=== PATIENT | female | born 1985 | race Caucasian/White ===

== ENCOUNTER 2020-04-25 16:20 | Emergency (ER) | payer OTHER, SELFPAY ==
[2020-04-25 16:30] VITALS: BP 133/68; PULSE 71; RESP 16; TEMP 37.1; O2SAT 99
--- NOTE | 2020-04-25 16:34 | ED.EXTPRO ---
HPI - Extremity Problem General Chief complaint: Extremity Problem,Nontraumatic Stated complaint: bilateral hand pain Time Seen by Provider: 04/25/20 16:38 Source: patient and RN notes reviewed Mode of arrival: ambulatory Limitations: no limitations History of Present Illness HPI Narrative: 34-year-old female presents with concern for bilateral hand and wrist pain. 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 She denies any injury or trauma. Reports she has been using copper gloves to reduce pain, reports they worked briefly, but no longer work. She has not taken any medications for pain. Reports pain starts in the wrist and will radiate to the hands and up the arm occasionally MD Complaint: extremity pain Related Data Allergies Allergy/AdvReac Type Severity Reaction Status Date / Time codeine Allergy Severe Itching Verified 05/27/16 19:53 sulfamethoxazole Allergy Mild Verified 05/27/16 19:53 trimethoprim Allergy Mild Verified 05/27/16 19:53 fentanyl Allergy Unknown Verified 05/27/16 19:53 PROPOXYPHENE NAPSYLATE Allergy Mild Uncoded 05/27/16 19:53 HYDROMORPHONE HCL Allergy Unknown Uncoded 05/27/16 19:53 Review of Systems Review of Systems: Narrative: CONSTITUTIONAL: Denies malaise, chills, sweats, or fever. SKIN: Bruising, redness MUSCULOSKELETAL: Reports bilateral wrist and hand pain NEUROLOGIC: Reports bilateral intermittent wrist and hand numbness, weakness All systems reviewed & are unremarkable except as noted in HPI and below PMFSH Comments At time of signature, agree with nursing past medical, surgical, social and family history. There is no relevant family history pertinent to the presenting complaint Exam Narrative: Exam Narrative: GENERAL: Well-appearing, well-nourished, and in no acute distress. HEAD: Normocephalic EYES: PERRLA, conjunctivae clear NECK: Supple. CHEST: Speaks in full sentences. No respiratory distress. HEART: Regular rate and rhythm. Normal and equal peripheral pulses. EXTREMITIES: Right and left wrist and hand and digits of hand have normal sensation. 5/5 strength with digit flexion, extension. 4-5 sports broadcasting internship strength bilaterally. Range of motion normal. No clubbing, cyanosis, or edema noted. No tenderness. Skin intact. Normal digital cascade with flexion of fingers, median, ulnar and radial nerve intact. Normal sensation of each side of finger. Can perform 'okay' sign, 'cross over finger test of index and middle fingers' and 'thumbs up' sign. No scissoring. Normal thumb opposition. Good capillary refill and radial pulse. Distal capillary refill less than 3 seconds. SKIN: Warn, dry, intact, pink. No rash. Phalen and Tinel performed are negative NEURO: Alert and oriented x3. PSYCH: Normal mood and affect Course Course Emergency Course: Patient is aware of diagnosis, understands and agrees to treatment plan. Anticipatory guidance given. Patient agrees to follow-up as directed and is aware of reasons to seek care at the emergency department. Portions of this record may have been created with voice recognition software Vital Signs Vital signs: Vital Signs Temperature 98.8 F 04/25/20 16:30 Pulse Rate 71 04/25/20 16:30 Respiratory Rate 16 04/25/20 16:30 Blood Pressure 133/68 04/25/20 16:30 Pulse Oximetry 99 04/25/20 16:30 Temperature 98.8 F 04/25/20 16:30 Pulse Rate 71 04/25/20 16:30 Respiratory Rate 16 04/25/20 16:30 Blood Pressure 133/68 04/25/20 16:30 Pulse Oximetry 99 04/25/20 16:30 Reviewed. MDM - Extremity (Nontraumatic) MDM Narrative Medical decision making narrative: Exam findings and imaging show no acute concerns or changes; patient is non-toxic appearing and is in no distress. Patient is appropriate for outpatient treatment and follow-up. Critical Care Time Critical Care Time Critical Care Time: No Discharge Plan Discharge Clinical Impression: Chronic
== END 2020-04-25 16:56 | disposition home or self-care (01) ==
PROVIDERS: Emergency Provider Nurse Practitioner
DX: M25.532 Pain in left wrist (principal); M25.531 Pain in right wrist; G89.29 Other chronic pain
CPT/HCPCS: 99213; G0463

== ENCOUNTER 2021-12-31 04:43 | Emergency (ER) | payer OTHER, SELFPAY ==
--- NOTE | ~2021-12-31 | XR_ITS ---
EXAMINATION: XR foot RT min 3V DATE: 12/31/2021 06:01 INDICATION: Right foot pain TECHNIQUE: Dorsoplantar, lateral, and 2 oblique views of the right foot were obtained. COMPARISON: 06/29/2006 FINDINGS: There is no fracture, dislocation, or subluxation. The bones, soft tissues, and joint space s are normal. IMPRESSION: 1. No acute osseous abnormality. Reviewed, dictated and finalized at location A.
--- NOTE | ~2021-12-31 | XR_ITS ---
EXAMINATION: XR hip RT 2V w AP pelvis INDICATION: Right hip pain TECHNIQUE: AP view the pelvis and two views of the right hip are obtained. COMPARISON: None available FINDINGS: Bone alignment is normal. There is no fracture. The soft tissues are unremarkable. IMPRESSION: 1. No acute osseous abnormality. Reviewed, dictated and finalized at location A.
--- NOTE | ~2021-12-31 | XR_ITS ---
EXAMINATION: XR ankle RT min 3V INDICATION: Right ankle pain TECHNIQUE: Four views of the right ankle are obtained. COMPARISON: None available FINDINGS: There is no fracture, dislocation, or subluxation. The bones, soft tissues, and joint space s are normal. IMPRESSION: 1. No acute osseous abnormality. Reviewed, dictated and finalized at location A.
[2021-12-31 04:36] VITALS: BP 114/50; PULSE 90; RESP 17; TEMP 36.5; O2SAT 99
--- NOTE | 2021-12-31 05:37 | PC.NURSE ---
Patient stated she has had a tubal and that there is no chance of , states I will sign the form. Radiology notified.
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
--- NOTE | 2021-12-31 05:43 | PC.NURSE ---
Patient taken to xray.
[2021-12-31 06:40] VITALS: BP 100/74; PULSE 91; RESP 17; O2SAT 98
== END 2021-12-31 06:43 | disposition home or self-care (01) ==
PROVIDERS: Emergency Provider Emergency Medicine
DX: S93.401A Sprain of unspecified ligament of right ankle, initial encounter (principal); S96.911A Strain of unspecified muscle and tendon at ankle and foot level, right foot, initial encounter; S99.921A Unspecified injury of right foot, initial encounter; V03.10XA Pedestrian on foot injured in collision with car, pick-up truck or van in traffic accident, initial encounter
CPT/HCPCS: 73502; 73610; 73630; 99284

== ENCOUNTER 2023-05-30 13:23 | Emergency (ER) | payer OTHER, SELFPAY ==
[2023-05-30 13:41] VITALS: BP 100/52; PULSE 90; RESP 18; TEMP 36.6; O2SAT 98
--- NOTE | 2023-05-30 13:49 | ED.DENTAL ---
HPI - Dental/Oral General Chief complaint: Dental/Oral Stated complaint: Dental Pain History of Present Illness HPI Narrative: pt is a 37 y/o female, presents to with right lower wisdom tooth pain that has waxed and waned for several months however two days ago, her tooth cracked and she now has swelling to the gingiva and pain with opening/closing her jaw. She denies fevers or chills and she has no sublingual swelling or problems swallowing. She is taking APAP and using topical orajel without relief. She reports she has a dentist but requires an oral surgeon and the only one that accepts her insurance is in [place]. She denies chance of or any other complaints today Related Data Home Medications Medication Instructions Recorded Confirmed escitalopram oxalate 10 mg tablet mg 05/30/23 naltrexone 50 mg tablet mg 05/30/23 trazodone 50 mg tablet mg 05/30/23 Allergies Allergy/AdvReac Type Severity Reaction Status Date / Time codeine Allergy Severe Itching Verified 05/30/23 13:35 sulfamethoxazole Allergy Mild Other Verified 05/30/23 13:35 trimethoprim Allergy Mild Other Verified 05/30/23 13:35 fentanyl Allergy Unknown Other Verified 05/30/23 13:35 PROPOXYPHENE NAPSYLATE Allergy Mild Other Uncoded 05/30/23 13:35 HYDROMORPHONE HCL Allergy Unknown Other Uncoded 05/30/23 13:35 Review of Systems ENT: Reports system reviewed and no additional complaints, except as documented and Reports as per HPI Exam Const: General: healthy appearing, no acute distress and alert Nutritional Appearance: well nourished Orientation/consciousness: patient oriented x3 Limitations: no limitations HENMT: Head: normal to inspection Ears: external ears normal and TM's normal bilaterally Face/Nose/Sinus: Normal external nose present Face and sinus: normal facial exam (no gross facial swelling or asymmetry) and sinuses nontender Teeth and gingiva: abnormal tooth and associated gingiva (diffuse dental decay of the upper and lower teeth. the #32 tooth is cracked) Other: mild gingival erythema noted surrounding the right #32 tooth. There is no sublingual swelling or submental node palpable. No palpable lymphadenopathy appreciated Course Course Emergency Course: oral abx, dental FU stressed Level of Care: [facility] Care Visit ([id number]) Vital Signs Vital signs: Vital Signs Temperature 36.6 C 05/30/23 13:41 Pulse Rate 90 05/30/23 13:41 Respiratory Rate 18 05/30/23 13:41 Blood Pressure 100/52 L 05/30/23 13:41 Pulse Oximetry 98 05/30/23 13:41 Oxygen Delivery Room Air 05/30/23 13:41 Temperature 36.6 C 05/30/23 13:41 Pulse Rate 90 05/30/23 13:41 Respiratory Rate 18 05/30/23 13:41 Blood Pressure 100/52 L 05/30/23 13:41 Pulse Oximetry 98 05/30/23 13:41 Oxygen Delivery Room Air 05/30/23 13:41 MDM - Dental/Oral MDM Narrative Medical decision making narrative: oral abx, dental FU, encouraged patient call to [facility] dental school in [place], as they may be able to accommodate her surgical needs. pt is agreeable with plan. Differential Diagnosis Differential diagnosis: Likely dental caries, toothache, dental abscess and fracture of tooth Discharge Plan Discharge Clinical Impression: Dental caries, Toothache Patient Disposition: Home, Self-Care Condition: Stable Instructions: Antibiotic Form, Toothache (ED) Additional Instructions: START AND COMPLETE ANTIBIOTICS DIRECTED. ADD AN OVER THE COUTNER PROBIOTIC TO REDUCE GI SIDE EFFECTS. SEE YOUR DENTIST OR CONTACT [facility] FOR FOLLOW UP VISIT. PROCEED TO THE ER IF YOU DEVELOP FEVERS OR SWELLING BENEATH YOUR TONGUE. Prescriptions: New clindamycin HCl 300 mg capsule 300 mg PO Q6H 10 Days Qty: 40 0RF No Action trazodone 50 mg tablet naltrexone 50 mg Tablet escitalopram oxalate 10 mg tablet Follow-up/Referrals: PHYSICIAN NOT ON STAFF,NONSTAFF [Primary Care Provider] - Stand Alone
== END 2023-05-30 13:58 | disposition home or self-care (01) ==
PROVIDERS: Emergency Provider Nurse Practitioner Family
DX: K02.9 Dental caries, unspecified (principal); Z79.899 Other long term (current) drug therapy
CPT/HCPCS: 99213; G0463

== ENCOUNTER 2023-12-21 13:08 | Emergency (ER) | payer OTHER, SELFPAY ==
--- NOTE | ~2023-12-21 | CT_ITS ---
EXAMINATION: CT soft tissue neck w con DATE: 12/21/2023 14:17 INDICATION: Right-sided facial swelling, rule out abscess TECHNIQUE: Computed tomography (CT) of the neck was performed with 75 mL Omnipaque-350 intravenous co ntrast. Automated exposure control and iterative reconstruction technique were employed. The dose-viktor gth product was 214.19 mGy-cm. COMPARISON: None FINDINGS: The thyroid gland is unremarkable. Enlargement and hyperemia of the right submandibular gland. The left submandibular gland and bilateral parotid glands are normal. Moderate enlargement of the right p alatine tonsil. Bilateral upper anterior cervical chain lymph node enlargement, particularly about th e right submandibular gland. The superior mediastinum is unremarkable. The airway is unremarkable. Extensive edema in the right parapharyngeal space and parapharyngeal mucosal space. Grossly norm al-appearing neck arteries. The orbits are unremarkable. Visualized sinuses and mastoid air cells a re well aerated. Biapical pleural scarring. Early emphysematous change. There is no significant ce rvical spondylosis. Extensive tooth and periapical lucencies. IMPRESSION: Moderate right pontine tonsil and marked right submandibular gland enlargement, with surrounding kerry a and lymphadenopathy. No abscess detected. Extensive periodontal disease, consider dental referral. Biapical pleural scarring and emphysematous change, greater than expected for age. Reviewed, dictated and finalized at location K. IMPRESSION: Moderate right pontine tonsil and marked right submandibular gland enlargement, with surrounding edema and lymphadenopathy. No abscess detected. Extensive periodontal disease, consider dental referral. Biapical pleural scarring and emphysematous change, greater than expected for a ge.
[2023-12-21 13:13] VITALS: BP 125/72; PULSE 80; RESP 18; TEMP 36.3; O2SAT 100
--- NOTE | 2023-12-21 13:44 | ED.SKABFB ---
HPI - Skin/Abscess/Foreign Bdy General Chief complaint: Skin/Abscess/Foreign Body Stated complaint: R sided jaw pain, abscess Time Seen by Provider: 12/21/23 13:11 Source: patient Mode of arrival: ambulatory Limitations: no limitations History of Present Illness HPI narrative: Patient is a 38-year-old female who presents with concern for abscess to right lower jaw. Patient reports she was eating last night and thinks she cracked her her right lower wisdom tooth, tooth number 32. She developed pain in her right lower mouth afterwards. States she woke up this morning with significant swelling to her right lower jaw. Reports pain with eating/chewing, swallowing. Denies difficulty breathing. Denies nausea, vomiting. She is able to keep down fluids. Denies fevers. Patient does not currently have a dentist. Took ibuprofen last night, has not had anything for pain today. Related Data Home Medications Medication Instructions Recorded Confirmed escitalopram oxalate 10 mg tablet mg 05/30/23 naltrexone 50 mg tablet mg 05/30/23 trazodone 50 mg tablet mg 05/30/23 Allergies Allergy/AdvReac Type Severity Reaction Status Date / Time codeine Allergy Severe Itching Verified 12/21/23 13:17 sulfamethoxazole Allergy Mild Other Verified 12/21/23 13:17 trimethoprim Allergy Mild Other Verified 12/21/23 13:17 fentanyl Allergy Unknown Other Verified 12/21/23 13:17 PROPOXYPHENE NAPSYLATE Allergy Mild Other Uncoded 12/21/23 13:17 HYDROMORPHONE HCL Allergy Unknown Other Uncoded 12/21/23 13:17 Review of Systems Review of Systems: CONSTITUTIONAL: Denies fever, chills, or sweats. ENT: See HPI. CARDIOVASCULAR: Denies chest pain. RESPIRATORY: Denies dyspnea. GASTROINTESTINAL: Denies abdominal pain, nausea, vomiting, or diarrhea. All systems reviewed & are unremarkable except as noted in HPI and below Exam Narrative: GENERAL: Appears older than stated age, thin, in mild acute distress d/t pain. HEAD: Normocephalic, atraumatic. ENT: Diffuse dental decay, numerous dental caries. Fractured right lower wisdom tooth, tooth number 32 with significant gum inflammation surrounding tooth. Tenderness to palpation diffusely throughout right lower posterior gumline. No evidence of focal abscess or fluctuance. No obvious drainage. No other mucosal lesions noted. Uvula is midline and not edematous. R tonsil appears mildly enlarged, no exudate. No protrusion of tonsillar bed. No obvious drainage from ducts. Swelling noted to right lower mandible/outer jaw line. Focal tenderness to this region. Again no obvious fluctuance. RESPIRATORY: Airway patent, respirations nonlabored. Clear to auscultation bilaterally, no rales, rhonchi, wheezing. CARDIOVASCULAR: Regular rate and rhythm without murmurs, rubs, or gallops. MUSCULOSKELETAL: Moves all extremities. No gross deformities. SKIN: Warm, dry, normal color. NEURO: A&O X3. Speech clear. Cranial nerves II-XII grossly intact. Steady gait. No ataxic movements. PSYCHIATRIC: Appropriate mood and affect. Normal interaction. Course Vital Signs Vital signs: Vital Signs Temperature 97.4 F L 12/21/23 13:13 Pulse Rate 80 12/21/23 13:13 Respiratory Rate 18 12/21/23 13:13 Blood Pressure 125/72 12/21/23 13:13 Pulse Oximetry 100 12/21/23 13:13 Oxygen Delivery Room Air 12/21/23 13:13 Temperature 97.4 F L 12/21/23 13:13 Pulse Rate 80 12/21/23 13:13 Respiratory Rate 18 12/21/23 13:13 Blood Pressure 125/72 12/21/23 13:13 Pulse Oximetry 100 12/21/23 13:13 Oxygen Delivery Room Air 12/21/23 13:13 MDM - Skin/Abscess/Foreign Bdy MDM Narrative Medical decision making narrative: Patient presented to ED with right lower dental pain, jaw swelling. Vital signs are stable upon arrival. Patient mildly uncomfortable appearing. Has numerous med allergies, did not want narcotic pain medication. Given Toradol and Tylenol in the ED. Will obtain lab and imaging to further eval
[2023-12-21 13:49] LABS: Basophils Percent Auto 0.2 % (0.2-1.2); Eosinophils Percent Auto 0.1 % (0-4.4); Hematocrit 40.6 % (37.0-47.0); Hemoglobin 13.7 g/dL (12.0-15.0); Immature Granulocyte Absolute 0.09 K/mm3 (0.00-0.031); Immature Granulocyte Percent A 0.5 % (0-0.5); Lymphocytes Absolute Auto 1.75 K/mm3 (0.9-3.2); Lymphocytes Percent Auto 9.5 % (18.3-44.2); Mean Corpuscular HGB Conc 33.7 g/dl (32-36); Mean Corpuscular Hemoglobin 32.2 pg (26-34); Mean Corpuscular Volume 95.3 fl (80-100); Mean Platelet Volume 10.2 fl (7.4-10.4); Monocytes Absolute Auto 1.4 K/mm3 (0.1-0.6); Monocytes Percent Auto 7.5 % (2.6-8.5); Neutrophils Absolute Auto 15.1 K/mm3 (1.3-6.7); Neutrophils Percent Auto 82.2 % (45.5-73.1); Platelet Count Result 354 k/mm3 (150-375); Red Blood Count 4.26 M/mm3 (4.2-5.4); Red Cell Distribution Width 12.9 % (11.5-14.5); White Blood Count 18.4 K/mm3 (4.5-10.0)
[2023-12-21] MEDS: KETOROLAC 30 MG/ML VIAL (*BKC) IV PUSH (13:50)
[2023-12-21] MEDS: ACETAMINOPHEN 500 MG TABLET 1000 MG PO (13:50)
[2023-12-21] MEDS: SODIUM CHLORIDE 0.9% IV 1,000 ML 999 ML IV CONT (13:50)
[2023-12-21 13:59] LABS: Alanine Aminotransferase 14 U/L (6-35); Albumin Level 4.9 g/dL (3.5-5.1); Alkaline Phosphatase 60 U/L (38-126); Anion Gap 8 mmol/L (4-12); Aspartate Amino Transferase 22 U/L (14-36); Blood Urea Nitrogen 10 mg/dL (7-17); Calcium 9.5 mg/dL (8.4-10.2); Carbon Dioxide 23 mmol/L (22-30); Chloride 107 mmol/L (98-107); Estimated CRCL calculation 72 ml/min; Estimated Glomerular Filt Rate > 60; Glucose 126 mg/dL (65-110); Potassium 3.7 mmol/L (3.4-5.0); Sodium 138 mmol/L (137-145)
[2023-12-21] MEDS: AMPICILLIN SULB 3 GM/NS 100 ML 3 GM/100 ML VIAL IVPB (15:12)
== END 2023-12-21 15:51 | disposition home or self-care (01) ==
PROVIDERS: Emergency Provider Physician Assistant
DX: K03.81 Cracked tooth (principal); R59.9 Enlarged lymph nodes, unspecified; K05.6 Periodontal disease, unspecified
CPT/HCPCS: 36415; 70491; 80053; 81025; 85025; 96361; 96365; 96375; 99284; A9270; J0295; J1885; J7030; Q9967

== ENCOUNTER 2024-07-21 13:49 | Emergency (ER) | payer OTHER, SELFPAY ==
[2024-07-21 13:56] VITALS: BP 132/69; PULSE 82; RESP 16; TEMP 37.4; O2SAT 99
--- NOTE | 2024-07-21 13:58 | ED_ITS ---
HPI - Fever General Chief Complaint: Fever Stated Complaint: Chills/Fever Time Seen by Provider: 07/21/24 14:00 Source: patient Mode of arrival: ambulatory Limitations: no limitations History of Present Illness HPI Narrative: Kan is a 38-year-old female patient presenting to the clinic today with complaints of body aches, chills, sweats, fatigue, and tactile fever x2 days. She reports she has not checked her actual temperature. Denies any recent weight loss but states she has decrease in appetite. Denies sore throat, increase nasal congestion that what normal for her, or cough. She is a current smoker. Denies any chest pain, shortness breath, abdominal pain, or any urinary symptoms. Denies chance of as she has had tubal ligation/partial hyst Related Data Home Medications Medication Instructions Recorded Confirmed No Home Medications 07/21/24 07/21/24 Allergies Allergy/AdvReac Type Severity Reaction Status Date / Time codeine Allergy Severe Itching Verified 07/21/24 13:53 sulfamethoxazole Allergy Mild Other Verified 07/21/24 13:53 trimethoprim Allergy Mild Other Verified 07/21/24 13:53 fentanyl Allergy Unknown Other Verified 07/21/24 13:53 PROPOXYPHENE NAPSYLATE Allergy Mild Other Uncoded 07/21/24 13:53 HYDROMORPHONE HCL Allergy Unknown Other Uncoded 07/21/24 13:53 Review of Systems Review of Systems: Pertinent positives per HPI. Patient denies any rash, headache, visual changes, dizziness, cough, shortness of breath, chest pain, palpitations, nausea, vomiting, diarrhea, constipation, abdominal pain, or any urinary issues. PMFSH Comments At the time of my signature, I reviewed and agree with the nursing past medical, surgical, social, and family history. There is no relevant family history pertinent to the patient complaint. Exam Narrative: General: Well-developed, well nourished, in no apparent distress Head: Normocephalic, atraumatic Eyes: Pupils equally round and reactive to light bilaterally, EOM intact, sclera and conjunctive clear, no discharge, lids normal Ears: TMs intact and clear, ear canals clear, no drainage, grossly hearing normal. Nose: Nares patent, clear discharge, no inflammation, no sinus tenderness. Mouth: Oral pharynx without lesions or masses, good dentition, MMM. Neck: Supple, trachea midline, no enlargement of anterior or posterior cervical nodes, no thyroid masses or goiter palpable. Cardio: Regular rate and rhythm, s1 and s2 normal, no murmur appreciated. Resp: Clear to auscultation bilaterally, no rhonchi, rales, wheezing or rubs Course Course Emergency Course: Portions of this record may have been created with voice recognition software. Level of Care: Express Care Visit Vital Signs Vital signs: Vital Signs Temperature 37.4 C 07/21/24 13:56 Pulse Rate 82 07/21/24 13:56 Respiratory Rate 16 07/21/24 13:56 Blood Pressure 132/69 07/21/24 13:56 Pulse Oximetry 99 07/21/24 13:56 Oxygen Delivery Room Air 07/21/24 13:56 Temperature 37.4 C 07/21/24 13:56 Pulse Rate 82 07/21/24 13:56 Respiratory Rate 16 07/21/24 13:56 Blood Pressure 132/69 07/21/24 13:56 Pulse Oximetry 99 07/21/24 13:56 Oxygen Delivery Room Air 07/21/24 13:56 Vital signs reviewed MDM - Fever MDM Narrative Medical decision making narrative: At the time of visit patient is resting comfortably on the exam table. Patient appears to be nontoxic. Plan: Lung sounds are clear in the clinic today. COVID and influenza testing was negative. Patient denies any shortness of breath or chest pain. She denies any urinary symptoms or abdominal pain. No sign of bacterial infection in the clinic today. I suspect patient has viral syndrome. Supportive measures were discussed with the patient and they voiced understanding discharge instructions and agrees to treatment plan. Return precautions reviewed Differential Diagnosis Differential diagnosis: Likely cellulitis, fever of unknown origin, gastroenteritis, community acquired pneumonia, pyelonephritis, viral infection, sepsis and influenza Discharge Plan Discharge Clinical Impression: Acute viral syndrome Patient Disposition: Home, Self-Care Condition: Stable Instructions: Antibiotic Form, Viral Syndrome (ED) Additional Instructions: COVID and influenza testing was negative today Lung sounds are clear in the clinic today No sign of bacterial infection Increase fluids and stay well hydrated Tylenol/motrin for pain/fever Go to the ED if you develop a worsening in your condition- high fever not controlled by Tylenol or Motrin, dehydration, weakness, lethargy, shortness of breath, chest pain or abdomen pain. Follow up with your PCP in 3-5 days if symptoms persist. Prescriptions: No Action No Home Medications Follow-up/Referrals: PHYSICIAN,DIGITAL ASSET SPECIALIST [Primary Care Provider] - Stand Alone Forms: Work/School Release IP Time of Disposition: 14:15 Quality NIHSS Nursing Documentation ED NIHSS nursing documentation: reviewed/agree
[2024-07-21 14:19] LABS: EDCOVIDSCREEN Negative (Negative); EDINFLUASCREEN Negative (Negative); EDINFLUBSCREEN Negative (Negative)
== END 2024-07-21 14:22 | disposition home or self-care (01) ==
PROVIDERS: Emergency Provider Nurse Practitioner Family
DX: B34.9 Viral infection, unspecified (principal); Z20.822 Contact with and (suspected) exposure to COVID-19; F17.200 Nicotine dependence, unspecified, uncomplicated
CPT/HCPCS: 87426; 87804; 99212; G0463

== ENCOUNTER 2025-04-02 16:51 | Emergency (ER) | payer SELFPAY ==
[2025-04-02 16:58] VITALS: BP 103/51; PULSE 77; RESP 16; TEMP 37.1; O2SAT 98
--- NOTE | 2025-04-02 16:59 | ED.GENADULT ---
HPI - General Adult General Chief complaint: Abdominal Pain Stated complaint: right ear pain/abdomen pain/vomiting Time Seen by Provider: 04/02/25 17:00 Source: patient, RN notes reviewed and old records reviewed Mode of arrival: ambulatory Limitations: no limitations History of Present Illness HPI narrative: 39-year-old presents to the [facility] with complaints of 3 day of worsening abdominal pain vomiting. Had a normal bowel movement this morning. Denies any urinary symptoms. Denies frequency urgency or burning. Patient also noticed just prior to arrival that her right ear was bothering her. Onset (ago): day(s) (3) Treatments prior to arrival: none Related Data Home Medications ?Medication ?Instructions ?Recorded ?Confirmed ?Last Taken ?Type No Home Medications 07/21/24 04/02/25 Unknown History Allergies Allergy/AdvReac Type Severity Reaction Status Date / Time codeine Allergy Severe Itching Verified 04/02/25 16:52 sulfamethoxazole Allergy Mild Other Verified 04/02/25 16:52 trimethoprim Allergy Mild Other Verified 04/02/25 16:52 fentanyl Allergy Unknown Other Verified 04/02/25 16:52 PROPOXYPHENE NAPSYLATE Allergy Mild Other Uncoded 04/02/25 16:52 HYDROMORPHONE HCL Allergy Unknown Other Uncoded 04/02/25 16:52 Review of Systems Review of Systems: All systems reviewed & are unremarkable except as noted in HPI and below Constitutional: Constitutional: Reports poor appetite ENT: Reports as per HPI and Reports otalgia Cardiovascular: Cardiovascular: Reports no additional cardiovascular complaints, Denies chest pain and Denies dyspnea Respiratory: Respiratory: Reports no additional respiratory complaints, Denies chest congestion, Denies cough and Denies dyspnea Gastrointestinal: Gastrointestinal: Reports as per HPI, Reports abdominal pain and Reports nausea Genitourinary: Genitourinary: Reports no additional female genitourinary complaints Musculoskeletal: Musculoskeletal: Reports no additional musculoskeletal complaints Integumentary/Breasts: Skin/Breast: Reports system reviewed and no additional complaints, except as docu PMFSH Comments At the time of my signature, I reviewed and agree with the nursing past medical, surgical, social, and family history. There is no relevant family history pertinent to the patient complaint. Exam Const: General: cooperative, no acute distress, well developed, alert, tired appearing, uncomfortable and well nourished Nutritional Appearance: well nourished Orientation/consciousness: patient oriented x3 Limitations: no limitations HENMT: Head: normal to inspection Ears: hearing grossly normal bilaterally, external ears normal, TM's normal bilaterally, EAC's normal, mastoids normal and no periauricular adenopathy Face/Nose/Sinus: Normal external nose present Face and sinus: normal facial exam Mouth: Yes Normal oral and palatal mucosa present, Yes lip normal, Yes tongue normal and Yes moist mucous membranes Teeth and gingiva: poor dentition (Very decayed teeth) Eyes: General: appearance normal, both eyes and all related structures Alignment and Position: alignment normal Neck: Neck: normal visual inspection, full ROM, no lymphadenopathy and no meningeal signs Chest: Chest palpation & inspection: normal inspection of the chest Resp: Effort & Inspection: normal respiratory effort and able to speak in complete sentences Auscultation: clear to auscultation bilaterally, no crackles, no rales, no rhonchi and no wheezes Cardio: Rate: regular rate GI: Inspection: distended GI Palp: Yes abdominal tenderness, Yes Firmness to palpation present (GI) and Yes Guarding due to palpation present (GI) Auscultation: Hyperactive bowel sounds present : General: Yes no CVA tenderness Back/Spine/Pelvis: Back: no CVA tenderness Skin: General skin exam: normal color and no rashes or lesions noted Neuro: General: patient oriented x3, gait normal, moves all extremities and no meningeal signs Cognition (Neuro): normal cognition Speech: normal speech Gait exam (Neuro): Normal gait present Extrem: General: normal to inspection, full ROM, capillary refill normal and normal gait Psych: Appearance: grossly normal and well kempt Mental Status: mental status grossly normal Speech and movement: Normal speech and movement present and Clear speech present Affect: normal affect Attitude: cooperative Course Course Level of Care: Express Care Visit Vital Signs Vital signs: Vital Signs Temperature 98.7 F 04/02/25 16:58 Pulse Rate 77 04/02/25 16:58 Respiratory Rate 16 04/02/25 16:58 Blood Pressure 103/51 L 04/02/25 16:58 Pulse Oximetry 98 04/02/25 16:58 Oxygen Delivery Room Air 04/02/25 16:58 Temperature 98.7 F 04/02/25 16:58 Pulse Rate 77 04/02/25 16:58 Respiratory Rate 16 04/02/25 16:58 Blood Pressure 103/51 L 04/02/25 16:58 Pulse Oximetry 98 04/02/25 16:58 Oxygen Delivery Room Air 04/02/25 16:58 Reviewed Transfer Transfered to: [facility] Transportation: Other (POV, declined EMS) Transfer rationale: Patient with significant abdominal tenderness increasing over the last 3 days with associated vomiting. Sending for higher level of care Accepting physician: Spoke with Loren ABDUL, Dr. Davalos Medical Decision Making MDM Narrative Medical decision making narrative: Patient sitting in exam room. Patient is nontoxic but appears uncomfortable, vitals are stable. Patient presents with right ear pain and abdominal pain. No acute findings noted on the ear, tenderness to the lower abdominal area with palpation, mildly distended. Denies any other symptoms except for nausea and vomiting. Sending patient for higher level care to rule out acute abdomen Transfer instructions reviewed with patient go directly to the ER. Do not eat or drink until cleared by ER provider. EMS offered, patient declined will drive herself. All questions have been answered, and the patient deny any further questions with discharge and discharge plan. Some parts of this dictation were generated by voice recognition software and may contain typographical and/or grammatical inaccuracies. Differential Diagnosis Differential Diagnosis: Acute abdomen, bowel blockage, UTI, pyelonephritis, kidney stone, bowel obstruction, gallbladder, diverticulitis, constipation Medical Records Medical records reviewed: Yes I reviewed the external patient's medical records. Vital Signs Vital Signs: Vital Signs Temperature 98.7 F 04/02/25 16:58 Pulse Rate 77 04/02/25 16:58 Respiratory Rate 16 04/02/25 16:58 Blood Pressure 103/51 L 04/02/25 16:58 Pulse Oximetry 98 04/02/25 16:58 Oxygen Delivery Room Air 04/02/25 16:58 Temperature 98.7 F 04/02/25 16:58 Pulse Rate 77 04/02/25 16:58 Respiratory Rate 16 04/02/25 16:58 Blood Pressure 103/51 L 04/02/25 16:58 Pulse Oximetry 98 04/02/25 16:58 Oxygen Delivery Room Air 04/02/25 16:58 Reviewed Lab Data Lab results reviewed: Yes I reviewed the patient's lab results. Labs: Reviewed Critical Care Time Critical Care Time Critical Care Time: No Discharge Plan Discharge Clinical Impression: Bilateral lower abdominal pain, Acute pain of right ear Patient Disposition: Acute Care Hospital Condition: Stable Instructions: Antibiotic Form Patient Language: Tuvaluan Prescriptions: No Action No Home Medications Follow-up/Referrals: PHYSICIAN,FARM MACHINERY ENGINE MECHANIC [Primary Care Provider] -
== END 2025-04-02 17:10 | disposition short-term general hospital (02) ==
PROVIDERS: Emergency Provider Nurse Practitioner
DX: R10.31 Right lower quadrant pain (principal); R10.32 Left lower quadrant pain; H92.01 Otalgia, right ear
CPT/HCPCS: 99212; G0463